=== PATIENT | female | born 1940 | race Caucasian/White ===

== ENCOUNTER → 2016-05-24 | Outpatient (CLI) | payer MEDICARE, BC ==
--- NOTE | 2016-05-24 09:53 | XR ---
Abdomen HISTORY: Right-sided hydronephrosis Frontal view of the abdomen on 2 images Comparison prior exam one January 2016 Double-J right-sided ureteral stent is present, distal aspect is coiled within the region of the blad jerrica, proximal coil may be within renal pelvis. Bilateral hip arthroplasties are present. No bowel obs truction or pneumoperitoneum. Lung bases are clear. IMPRESSION: Postop, post procedure changes
== END | disposition home or self-care (01) ==
LOC: RADXRMAIN 09:18
PROVIDERS: ATTEND Urology
DX: N13.30 Unspecified hydronephrosis (principal)
CPT/HCPCS: 74000

== ENCOUNTER → 2016-10-04 | Outpatient (CLI) | payer MEDICARE, BC ==
--- NOTE | 2016-10-04 13:00 | XR ---
Abdomen HISTORY: Stent placement, Q 62.11 Frontal view of the abdomen correlated to prior exam 01/26/2016 Double-J right-sided ureteral stent is in place and shows appropriate position. There is been interva l left hip arthroplasty. No bowel obstruction or pneumoperitoneum evident. Lung bases are not include d. No other interval changes. IMPRESSION: Double-J stent is overlying appropriate position on the right.
== END | disposition home or self-care (01) ==
LOC: RADXRMAIN 10:51
PROVIDERS: ATTEND Urology
DX: Q62.11 Congenital occlusion of ureteropelvic junction (principal); Z96.0 Presence of urogenital implants
CPT/HCPCS: 74000

== ENCOUNTER → 2017-01-09 | Outpatient (CLI) | payer MEDICARE, BC ==
--- NOTE | 2017-01-09 10:56 | XR ---
EXAMINATION TYPE: XR KUB DATE OF EXAM: 01/09/2017 10:46 AM CLINICAL HISTORY: Hydronephrosis per order. History of nonfunctioning right kidney. TECHNIQUE: Two supine KUB images of the abdomen are obtained. COMPARISON: None. FINDINGS: Scattered gas is seen in non-distended stomach and small bowel loops. Gas and fecal materia l is seen in non-distended colon. There is redemonstration of right double-J ureter stent. There is p artial visualization of metallic hardware from bilateral hip arthroplasty. Lung bases are not include d. There are few scattered pelvic phleboliths. IMPRESSION: Overall nonobstructive bowel gas pattern. Stable right double-J ureter stent.
== END | disposition home or self-care (01) ==
LOC: RADXRMAIN 10:36
PROVIDERS: ATTEND Physician Assistant
DX: N13.30 Unspecified hydronephrosis (principal); Q62.11 Congenital occlusion of ureteropelvic junction; Z96.0 Presence of urogenital implants
CPT/HCPCS: 74000

== ENCOUNTER → 2017-07-18 | Outpatient (CLI) | payer MEDICARE, BC ==
--- NOTE | 2017-07-18 14:00 | XR ---
EXAMINATION TYPE: XR KUB DATE OF EXAM: 07/18/2017 11:04 AM CLINICAL HISTORY: Follow-up after stent placement. 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 TECHNIQUE: Single supine KUB image of the abdomen is obtained. COMPARISON: 01/09/2017. FINDINGS: Right ureteral stent is identified with its proximal aspect loops at the L3-L4 vertebral le magaly and distal aspect within the low pelvis centrally. This is similar in place into the prior of . No radiographic nephrolithiasis although colonic stool and bowel gas overlies the right angelo l shadow. Moderate degenerative changes of the lumbosacral junction and incidentally noted bilateral femoral arthroplasties are seen. Scattered phleboliths are again noted within the pelvis and are punc plummer. IMPRESSION: Similar placement of a right ureteral stent in comparison the prior of 01/09/2017. No new renal calculi are identified.
== END | disposition home or self-care (01) ==
LOC: RADXRMAIN 10:51
PROVIDERS: ATTEND Urology
DX: Q62.11 Congenital occlusion of ureteropelvic junction (principal); Z96.0 Presence of urogenital implants
CPT/HCPCS: 74018

== ENCOUNTER → 2017-11-18 | Outpatient (CLI) | payer MEDICARE, BC ==
--- NOTE | 2017-11-18 10:59 | XR ---
EXAMINATION TYPE: XR KUB DATE OF EXAM: 11/18/2017 10:49 AM CLINICAL HISTORY: Right ureter stent progress study TECHNIQUE: Single upright KUB image of the abdomen is obtained. COMPARISON: CT abdomen and pelvis January 06, 2015. Abdominal x-ray July 18, 2017 and older studies. FINDINGS: There is redemonstration of double-J right ureter stent. Proximal portion is at mid L4 vert ebral body level inferiorly and slightly more medial in position versus prior , suspected this is jus t above the UPJ in inferior pelvis. Distal tip projects over the pubic symphysis on current study. Th ere is likely some caudal angulation. No definitive nephrolithiasis. Metallic hardware from bilateral hip surgery is redemonstrated. Overall nonobstructive bowel gas alexei kamaljit. IMPRESSION: As above.
== END | disposition home or self-care (01) ==
LOC: RADXRMAIN 10:32
PROVIDERS: ATTEND Urology
DX: Q62.11 Congenital occlusion of ureteropelvic junction (principal); Z98.890 Other specified postprocedural states
CPT/HCPCS: 74018

== ENCOUNTER → 2018-04-11 | Outpatient (CLI) | payer MEDICARE, BC ==
--- NOTE | 2018-04-11 11:02 | XR ---
EXAMINATION TYPE: XR KUB DATE OF EXAM: 04/11/2018 10:49 AM CLINICAL HISTORY: Right ureteral stent placement TECHNIQUE: Single supine KUB image of the abdomen is obtained. COMPARISON: None. FINDINGS: Scattered gas is seen in nondilated small bowel loops. Gas and fecal material is seen in no ndilated colon. The lung bases are clear and the osseous structures are intact. Right ureteral stent is in place, similar to the prior of 11/18/2017. No calcifications are seen along the course of the ri ght ureter. Similar-appearing phleboliths are noted within the pelvis. Moderate degenerative change a t the lumbosacral junction. Bilateral femoral arthroplasties are noted. IMPRESSION: Right ureteral stent without new calcifications along the course of the stent. No new krys picious calcifications overlying the renal contours.
== END ==
LOC: RADXRMAIN 10:33
PROVIDERS: ATTEND Urology
DX: N13.30 Unspecified hydronephrosis (principal); Z95.828 Presence of other vascular implants and grafts
CPT/HCPCS: 74018

== ENCOUNTER → 2018-08-21 | Outpatient (CLI) | payer MEDICARE, BC ==
--- NOTE | 2018-08-21 11:34 | XR ---
EXAMINATION TYPE: XR KUB DATE OF EXAM: 08/21/2018 11:02 AM CLINICAL HISTORY: Right ureteral stent placement TECHNIQUE: Single supine KUB image of the abdomen is obtained. COMPARISON: 04/11/2018. FINDINGS: There is a stable right ureteral stent with its proximal aspect coiled likely within the re nal pelvis at the level of L3. Distal portion projects over the urinary bladder as expected. No new k inking or calcifications are seen within the right ureteral stent. Phleboliths are noted within the p melba as well as minimal atherosclerosis. No discrete renal calculi. Moderate degenerative changes of the lumbosacral junction and bilateral hip arthroplasties are seen. No dilated overlying bowel. IMPRESSION: Stable placement of the right ureteral stent in comparison the prior of 04/11/2018.
== END | disposition home or self-care (01) ==
LOC: RADXRMAIN 10:33
PROVIDERS: ATTEND Urology
DX: N13.5 Crossing vessel and stricture of ureter without hydronephrosis (principal); Z96.0 Presence of urogenital implants
CPT/HCPCS: 74018

== ENCOUNTER → 2019-04-13 | Outpatient (CLI) | payer MEDICARE, BC ==
--- NOTE | 2019-04-13 16:36 | XR ---
EXAMINATION TYPE: XR KUB DATE OF EXAM: 04/13/2019 CLINICAL DATA: 78 year-old female UPJ obstruction, right-sided stent placed in October, [facility] COMPARISON: 08/21/2018 FINDINGS: Nonobstructive bowel gas pattern. Scattered mild stool. Indwelling right-sided ureteral stent. No suspicious calcifications seen along the course of the righ t-sided stent. Pelvic phleboliths unchanged. Degenerative changes of the facet joints lower lumbar spine. Bilateral total arthroplasties partially visualized. IMPRESSION: Redemonstrated right-sided ureteral stent. No suspicious calcification identified along the course of the stent.
== END | disposition home or self-care (01) ==
LOC: RADXRMAIN 10:33
PROVIDERS: ATTEND Urology
DX: N13.5 Crossing vessel and stricture of ureter without hydronephrosis (principal); Z96.89 Presence of other specified functional implants
CPT/HCPCS: 74018

== ENCOUNTER → 2019-10-15 | Outpatient (CLI) | payer MEDICARE, BC ==
--- NOTE | 2019-10-15 12:34 | XR ---
EXAMINATION TYPE: XR KUB DATE OF EXAM: 10/15/2019 COMPARISON: 04/13/2019 HISTORY: Pain TECHNIQUE: One view abdominal series FINDINGS: Nonobstructive bowel gas pattern. Scattered mild stool. Indwelling right-sided ureteral stent. No krys picious calcifications seen along the course of the right-sided stent. Pelvic phleboliths unchanged. Degenerative changes of the facet joints lower lumbar spine. Bilateral total arthroplasties partially visualized. IMPRESSION: Redemonstrated right-sided ureteral stent. No suspicious calcification identified along the course of the stent.
== END | disposition home or self-care (01) ==
LOC: RADXRMAIN 12:12
PROVIDERS: ATTEND Urology
DX: Z09 Encounter for follow-up examination after completed treatment for conditions other than malignant neoplasm (principal); Z87.448 Personal history of other diseases of urinary system; Z96.0 Presence of urogenital implants
CPT/HCPCS: 74018

== ENCOUNTER → 2020-05-24 | Outpatient (CLI) | payer MEDICARE, BC ==
--- NOTE | 2020-05-24 14:53 | XR ---
EXAMINATION TYPE: XR KUB DATE OF EXAM: 05/24/2020 Comparison: 10/15/2019 Clinical History: 79-year-old female Q62.11 Findings: Lung bases are clear. Supine imaging limited for assessment of free air. Nonobstructive bowel gas pattern. Mild overall stool burden. Right ureteral stent is in place. Bowel content largely if there is a right renal shadow. Calcifications in the pelvis are unchanged, probable phleboliths. Degenerative changes lower lumbar spine. Partially visualized bilateral total hip arthroplasties. Impression: Right ureteral stent in place. Bowel content largely obscures the right renal shadow. Small calcifica tions in the pelvis are unchanged and probably represent phleboliths.
== END | disposition home or self-care (01) ==
LOC: RADXRMAIN 10:25
PROVIDERS: ATTEND Urology
DX: Q62.11 Congenital occlusion of ureteropelvic junction (principal); Z96.0 Presence of urogenital implants
CPT/HCPCS: 74018

== ENCOUNTER → 2021-06-19 | Outpatient (CLI) | payer MEDICARE, BC ==
--- NOTE | 2021-06-19 16:19 | XR ---
EXAMINATION TYPE: XR KUB DATE OF EXAM: 06/19/2021 COMPARISON: 05/24/2020 INDICATION: Right side stent TECHNIQUE: Single view abdomen supine view FINDINGS: There is a normal bowel gas pattern. Psoas margins are normal. No organomegaly is present. Double pigtail catheter is present on the right. There may be a renal pelvic calcification adjacent t o the proximal right ureteral stent IMPRESSION: 1. Right ureteral stent. A 0.8 cm long calcification may be medial to the proximal stent.
== END | disposition home or self-care (01) ==
LOC: RADXRMAIN 09:26
PROVIDERS: ATTEND Urology
DX: N28.89 Other specified disorders of kidney and ureter (principal)
CPT/HCPCS: 74018

== ENCOUNTER → 2023-02-27 | Day surgery (SDC) | payer MEDICARE, BC ==
--- NOTE | 2023-02-28 10:40 | USB ---
Risk Values: Kim 5 year model risk: 0.9%. NCI Lifetime model risk: 1.0%. Findings: At the 6:00 position 2 cm from nipple there appears to be a simple cyst measuring 0.8 x 0.7 x 0.3 cm. Linear opacity at the inferior portion on orthogonal views appears to be related to indentation of the wall. The septation is not confirmed. This has good through transmission and posterior wall enhancement. This appears to correlate with the structure previously ultrasounded on 01/10/2023 and may correlate with the more anterior density on mammography. ASSESSMENT: 3 - Probably Benign. Management: Diagnostic Mammogram of the right breast in 4 months. Diagnostic Breast Ultrasound of the right breast in 4 months. A clinical breast exam by your physician is recommended on an annual basis and results should be correlated with mammographic findings. This exam should not preclude additional follow-up of suspicious palpable abnormalities. Results were given to the patient verbally at the time of exam. Electronically signed and approved by: Cal Dominguez D.O. Radiologis
== END ==
LOC: RADUSWWP 12:32
PROVIDERS: ATTEND Surgery
DX: Z53.8 Procedure and treatment not carried out for other reasons (principal); R92.8 Other abnormal and inconclusive findings on diagnostic imaging of breast

== ENCOUNTER → 2023-03-04 | Outpatient (CLI) | payer MEDICARE, BC ==
--- NOTE | 2023-03-04 12:50 | XR ---
EXAMINATION TYPE: XR KUB DATE OF EXAM: 03/04/2023 COMPARISON: 05/08/2022 HISTORY: Hydronephrosis right TECHNIQUE: AP supine view abdomen FINDINGS: Right ureteral stent is present. No renal or ureteral stones are evident Organomegaly is not present. Psoas margins are normal. Normal bowel gas is present. No mass effect is evident. IMPRESSION: 1. No acute abdomen changes. Right ureteral stent is present
== END | disposition home or self-care (01) ==
LOC: RADXRMAIN 12:19
PROVIDERS: ATTEND Urology
DX: N13.1 Hydronephrosis with ureteral stricture, not elsewhere classified (principal); Z96.0 Presence of urogenital implants
CPT/HCPCS: 74018

== ENCOUNTER → 2024-05-11 | Outpatient (CLI) | payer MEDICARE, BC ==
--- NOTE | 2024-05-11 11:50 | XR ---
EXAMINATION TYPE: XR KUB DATE OF EXAM: 05/11/2024 11:10 AM COMPARISON: None. CLINICAL INDICATION: Female, 83 years old with history of N13.0, TECHNIQUE: Single view of the abdomen. Overlying bowel content does limit evaluation for small renal and ureteral calculi. FINDINGS: Right renal calculi: None Visualized. Right ureteral calculi: Right ureteral stent noted to be in place. No definite calculus seen along th e course of the stent. Left renal calculi: None Visualized. Left ureteral calculi: None Visualized. Pelvic calcifications: None Visualized. Bowel gas pattern is unremarkable. No free air. No mass effects. IMPRESSION: 1. As above [facility], , 05/11/2024 11:48 AM
== END | disposition home or self-care (01) ==
LOC: RADXRMAIN 10:56
PROVIDERS: ATTEND Urology
DX: N13.0 Hydronephrosis with ureteropelvic junction obstruction (principal)
CPT/HCPCS: 74018